=== PATIENT | female | born 1970 | race Caucasian/White ===

== ENCOUNTER 2022-03-03 22:05 | Emergency (ER) | payer BC ==
[2022-03-03] MEDS ORDERED: Metoclopramide 10 MG/2 ML SDV IVPUSH ONE (23:00)
[2022-03-03] MEDS ORDERED: Sodium Chloride 0.9% 10 ML Syringe FLUSH PRN (23:00)
[2022-03-03] MEDS ORDERED: diphenhydrAMINE 50 MG/ML SDV IVPUSH ONE (23:01)
[2022-03-03] MEDS ORDERED: Ketorolac 30 MG/ML SDV IVPUSH ONE (23:01)
[2022-03-04 00:07] LABS: ESTIMATED GFR 78 mL/min (>60)
[2022-03-04] MEDS ORDERED: HYDROmorphone 0.5 MG/0.5 ML Syringe IVPUSH ONE (00:49)
== END 2022-03-04 01:50 | disposition home or self-care (01) ==
LOC: JD.ED 22:05
DX: R07.89 Other chest pain (principal); G43.809 Other migraine, not intractable, without status migrainosus; I10 Essential (primary) hypertension; R00.0 Tachycardia, unspecified; Z72.0 Tobacco use; Z79.899 Other long term (current) drug therapy
CPT/HCPCS: 36415; 80053; 84484; 85025; 85379; 93005; 96374; 96375; 99285; J1170; J1200; J1885; J2765; J3490; 71045-26

== ENCOUNTER 2022-04-10 01:11 | Emergency (ER) | payer BC ==
[2022-04-10] MEDS ORDERED: Sodium Chloride 0.9% 1,000 ML IV ONE (05:45)
[2022-04-10] MEDS ORDERED: Ondansetron 4 MG/2 ML SDV IVPUSH ONE (05:45)
[2022-04-10] MEDS ORDERED: Haloperidol Lactate 5 MG/ML SDV IM ONE (05:45)
== END 2022-04-10 07:31 | disposition home or self-care (01) ==
LOC: JD.ED 01:11
DX: G43.809 Other migraine, not intractable, without status migrainosus (principal); I10 Essential (primary) hypertension; F17.290 Nicotine dependence, other tobacco product, uncomplicated; Z79.899 Other long term (current) drug therapy
CPT/HCPCS: 96361; 96372; 96374; 99284; J1630; J2405; J7030